=== PATIENT | male | born 1950 | race African-American/Black ===

== ENCOUNTER 2016-10-24 21:54 | Emergency (ER) | payer MEDICARE, OTHER ==
[~2016-10-24] VITALS: Ht 177.8 cm; Wt 72.0 kg
[~2016-10-24 21:54] MED LIST: DOXY100T PO
[2016-10-24 21:56] VITALS: BP 134/90; PULSE 76; RESP 16; TEMP 98.9; O2SAT 96
[2016-10-24] MEDS ORDERED: [UNRECOGNIZED DRUG - REMARK] (22:02)
--- NOTE | 2016-10-24 22:44 | PD ---
HPI Chief Complaint: Complaint Time Seen by Provider: 22:35 Travel History International Travel<30 days: No Contact w/Intl Traveler<30days: No Traveled to known affect area: No History of Present Illness HPI 66-year-old male with history of chronic hiccups presents for evaluation of hematuria and left flank pain. He reports that he has had intermittent dark red urine for the past few weeks, worsened today. He has also been experiencing some left flank pain and left-sided abdominal pain throughout the day today. He endorses some pain in his head as well. He denies any nausea or vomiting, chest pain or shortness of breath, testicular or scrotal pain, urethral discharge. Symptoms are moderate, no aggravating or alleviating factors. No history of kidney stones. No other complaints. PFSH Past Medical History Hx Anticoagulant Therapy: No Asthma: No Blood Disorders: No Heart Rhythm Problems: No Cancer: No Cardiovascular Problems: No High Cholesterol: No Chemotherapy: No Chest Pain: No Congestive Heart Failure: No COPD: No Cerebrovascular Accident: No Diabetes: No Endocrine: No Genitourinary: No Hypertension: No Immune Disorder: No Musculoskeletal: Yes Neurologic: No Psychiatric: No Reproductive: No Respiratory: Yes (ASTHMA) Myocardial Infarction: No Radiation Therapy: No Sleep Apnea: No Social History Alcohol Use: Yes (2 4 PKS BEER DAILY) Tobacco Use: No Substance Use: Yes (SMOKES MARIJUANA 2-3 X PER WEEK) Allergies-Medications (Allergen,Severity, Reaction): Coded Allergies: No Known Allergies (Verified , 10/24/16) Reported Meds & Prescriptions Reported Meds & Active Scripts Active Reported [[facility]] Unknown Dose Review of Systems Except as stated in HPI: all other systems reviewed are Neg Physical Exam Narrative GENERAL: This is a well-developed well-nourished male in no acute distress, hiccuping during examination. SKIN: Warm and dry. HEAD: Atraumatic. Normocephalic. EYES: Pupils equal and round. No scleral icterus. No injection or drainage. ENT: No nasal bleeding or discharge. Mucous membranes pink and moist. NECK: Trachea midline. No JVD. CARDIOVASCULAR: Regular rate and rhythm. No murmur appreciated. RESPIRATORY: No accessory muscle use. Clear to auscultation. Breath sounds equal bilaterally. GASTROINTESTINAL: Abdomen soft, mild left lower quadrant tenderness without guarding. MUSCULOSKELETAL: No obvious deformities. Slight left CVA tenderness is present. NEUROLOGICAL: Awake and alert. No obvious cranial nerve deficits. Motor grossly within normal limits. Normal speech. PSYCHIATRIC: Appropriate mood and affect; insight and judgment normal. Data Data Last Documented VS Vital Signs Date Time Temp Pulse Resp B/P Pulse Ox O2 Delivery O2 Flow Rate FiO2 10/24/16 21:56 98.9 76 16 134/90 96 Room Air Orders Complete Blood Count With Diff (10/24/16 22:41) Comprehensive Metabolic Panel (10/24/16 22:41) Urinalysis - C+S If Indicated (10/24/16 22:41) Ecg Monitoring (10/24/16 22:41) Iv Access Insert/Monitor (10/24/16 22:41) Ketorolac Inj (Toradol Inj) (10/24/16 22:45) Morphine Inj (Morphine Inj) (10/24/16 22:45) Ondansetron Inj (Zofran Inj) (10/24/16 22:45) Sodium Chloride 0.9% Flush (Ns Flush) (10/24/16 22:45) Creatine Kinase (Cpk) (10/24/16 22:41) Ct Abd/Pel W/O Iv Contrast (10/24/16 23:00) MDM Medical Decision Making Medical Screen Exam Complete: Yes Emergency Medical Condition: Yes Medical Record Reviewed: Yes Differential Diagnosis Renal stone, dehydration, rhabdomyolysis, nephritis Narrative Course 66-year-old male who has been experiencing some dark colored question of hematuria intermittently for the past few weeks. Today symptoms worsened and he has also been having left-sided flank pain and abdominal pain. Plans for basic lab work, urinalysis, CT abdomen and pelvis. He will be given IV fluids, Zofran, Toradol. At the end of my shift the patient was signed out to my attending pending CT and labwork studies. Juanito Munguia Oct 24, 2016 22:44
[2016-10-24] MEDS ORDERED: SODIUM CHLORIDE 0.9% FLUSH 10 ML FLUSH IVF PRN (22:45)
[2016-10-24] MEDS ORDERED: ONDANSETRON HCL 4 MG/2 ML VIAL IVP ONE (22:45)
[2016-10-24] MEDS ORDERED: MORPHINE SULFATE 4 MG/ML INJ IV ONE (22:45)
[2016-10-24] MEDS ORDERED: KETOROLAC TROMETHAMINE 30 MG/ML (IVP) VIAL IVP ONE (22:45)
[2016-10-24 23:09] VITALS: BP 127/81; PULSE 67; RESP 16; O2SAT 94
[2016-10-24 23:24] LABS: AUTOMATED NEUTROPHIL # 5.3 TH/MM3 (1.8-7.7); BASOPHIL % 0.3 % (0.0-2.0); EOSINOPHIL % 0.6 % (0.0-4.0); HEMATOCRIT 41.7 % (39.0-51.0); HEMO FLAGS DIFF FINAL; LYMPH % 24.5 % (9.0-44.0); MEAN CELL VOLUME 87.6 FL (80.0-100.0); MEAN CORPUSCULAR HEMOGLOBIN 29.7 PG (27.0-34.0); MEAN CORPUSCULAR HGB CONC 33.9 % (32.0-36.0); MONO % 9.2 % (0.0-8.0); NEUT % 65.4 % (16.0-70.0); PLATELET COUNT 263 TH/MM3 (150-450); RED BLOOD COUNT 4.76 MIL/MM3 (4.50-5.90); RED CELL DISTRIBUTION WIDTH 13.4 % (11.6-17.2); WHITE BLOOD COUNT 8.1 TH/MM3 (4.0-11.0)
[2016-10-24 23:43] LABS: ALT (GPT) 28 U/L (12-78); ANION GAP 7 MEQ/L (5-15); AST (GOT) 20 U/L (15-37); BICARBONATE 30.7 MEQ/L (21.0-32.0); BLOOD UREA NITROGEN 8 MG/DL (7-18); CHLORIDE 99 MEQ/L (98-107); GLOMERULAR FILTRATION RATE 91 ML/MIN (>89); POTASSIUM 3.7 MEQ/L (3.5-5.1); SODIUM (NA) 137 MEQ/L (136-145)
[2016-10-24 23:45] LABS: ALKALINE PHOSPHATASE 69 U/L (45-117); CREATINE KINASE 319 U/L (39-308); TOTAL BILIRUBIN ADULT 2.8 MG/DL (0.2-1.0)
[2016-10-25 00:02] LABS: CKMB 4.9 NG/ML (0.5-3.6)
--- NOTE | 2016-10-25 00:08 | RADRPT ---
EXAM DATE/TIME: 10/24/2016 23:50 [facility] COMPARISON: No previous studies available for comparison. INDICATIONS : Bilateral flank pain and hematuria. Evaluate for calculi. ORAL CONTRAST: No oral contrast ingested. RADIATION DOSE: 13.28 CTDIvol (mGy) MEDICAL HISTORY : Carcinoma, throat. SURGICAL HISTORY : None. ENCOUNTER: Initial ACUITY: 1 day PAIN SCALE: 8/10 LOCATION: Left flank TECHNIQUE: Volumetric scanning of the abdomen and pelvis was performed. Using automated exposure control and ad justment of the mA and/or kV according to patient size, radiation dose was kept as low as reasonably achievable to obtain optimal diagnostic quality images. FINDINGS: LOWER LUNGS: The visualized lower lungs are clear. LIVER: Homogeneous density without lesion. There is no dilation of the biliary tree. No calcified gallston es. SPLEEN: Normal size without lesion. PANCREAS: Within normal limits. KIDNEYS: Normal in size and shape. There is no mass, stone, or hydronephrosis. ADRENAL GLANDS: Within normal limits. VASCULAR: There is no aortic aneurysm. BOWEL/MESENTERY: The stomach, small bowel, and colon demonstrate no acute abnormality. There is no free intraperitone al air or fluid. ABDOMINAL WALL: Within normal limits. RETROPERITONEUM: There is no lymphadenopathy. BLADDER: No wall thickening or mass. REPRODUCTIVE: Enlarged prostate. INGUINAL: There is no lymphadenopathy or hernia. MUSCULOSKELETAL: Within normal limits for patient age. CONCLUSION: No acute abnormality. Enlarged prostate. Jin Lee MD on October 25, 2016 at 0:05 Board Certified Radiologist. This report was verified electronically.
[2016-10-25 01:29] LABS: BLOOD, URINE NEG (NEG); CALCIUM OXALATE CRYSTALS,URINE OCC /hpf; COMMENT (UR) CULT NOT INDICATED; CULTURE IF INDICATED CULT NOT INDICATED; GLUCOSE,URINE NEG (NEG); KETONE, URINE TRACE mg/dL (NEG); MUCUS URINE MANY /lpf (OCC); NITRITE,URINE NEG (NEG); PH, URINE 5.5 (5.0-8.5); SQUAMOUS EPITHELIAL CELL URINE <1 /hpf (0-5); URINE COLOR DARK-YELLOW (YELLW/STRAW)
[2016-10-25] MEDS ORDERED: IBUP-1129 PO (01:46)
--- NOTE | 2016-10-25 01:46 | PD ---
Physical Exam Date Seen by Provider: Oct 24, 2016 Time Seen by Provider: 23:00 Narrative I, Dr. Currie, have reviewed the advance practice practitioner's documentation and am in agreement, met with the patient face to face, made the diagnosis, and the medical decision making was done by me. *My assessment and Findings: Patient seen and evaluated with PA, please see PA note for further details. Laboratory Tests Test 10/24/16 10/25/16 23:09 01:15 Monocytes (%) (Auto) 9.2 % (0.0-8.0) Calcium Level 10.3 MG/DL (8.5-10.1) Total Bilirubin 2.8 MG/DL (0.2-1.0) Total Creatine Kinase 319 U/L (39-308) Creatine Kinase MB 4.9 NG/ML (0.5-3.6) Urine Color DARK-YELLOW (YELLW/STRAW) Urine Turbidity HAZY (CLEAR) Urine Protein 30 mg/dL (NEG-TRACE) Urine Ketones TRACE mg/dL (NEG) Urine Bilirubin SMALL (NEG) Urine Leukocyte Esterase TRACE (NEG) Urine Calcium Oxalate Crystals OCC /hpf (NONE) Urine Mucus MANY /lpf (OCC) Last 24 hours Impressions Abdomen/Pelvis CT 10/24/16 2300 Signed Impressions: Service Date/Time: Saturday, October 24, 2016 23:50 - CONCLUSION: No acute abnormality. Enlarged prostate. Jni Lee MD Lab work did not show significant UTI and CAT scan was otherwise unremarkable. Urine did not show any signs of significant bleeding. No sniffed and RBCs. CPK is not significantly more unremarkable. At this point, my plan would be to release the patient would follow-up to primary care physician. Return for new issues as needed. The palates discussed with the patient and he states understanding. Data Data Last Documented VS Vital Signs Date Time Temp Pulse Resp B/P Pulse Ox O2 Delivery O2 Flow Rate FiO2 10/24/16 23:09 67 16 127/81 94 Room Air 10/24/16 21:56 98.9 Orders Complete Blood Count With Diff (10/24/16 22:41) Comprehensive Metabolic Panel (10/24/16 22:41) Urinalysis - C+S If Indicated (10/24/16 22:41) Ecg Monitoring (10/24/16 22:41) Iv Access Insert/Monitor (10/24/16 22:41) Ketorolac Inj (Toradol Inj) (10/24/16 22:45) Morphine Inj (Morphine Inj) (10/24/16 22:45) Ondansetron Inj (Zofran Inj) (10/24/16 22:45) Sodium Chloride 0.9% Flush (Ns Flush) (10/24/16 22:45) Creatine Kinase (Cpk) (10/24/16 22:41) Ct Abd/Pel W/O Iv Contrast (10/24/16 23:00) CKMB (10/24/16 23:09) CKMB% (10/24/16 23:09) Labs Laboratory Tests Test 10/24/16 10/25/16 23:09 01:15 White Blood Count 8.1 TH/MM3 Red Blood Count 4.76 MIL/MM3 Hemoglobin 14.1 GM/DL Hematocrit 41.7 % Mean Corpuscular Volume 87.6 FL Mean Corpuscular Hemoglobin 29.7 PG Mean Corpuscular Hemoglobin 33.9 % Concent Red Cell Distribution Width 13.4 % Platelet Count 263 TH/MM3 Mean Platelet Volume 8.3 FL Neutrophils (%) (Auto) 65.4 % Lymphocytes (%) (Auto) 24.5 % Monocytes (%) (Auto) 9.2 % Eosinophils (%) (Auto) 0.6 % Basophils (%) (Auto) 0.3 % Neutrophils # (Auto) 5.3 TH/MM3 Lymphocytes # (Auto) 2.0 TH/MM3 Monocytes # (Auto) 0.7 TH/MM3 Eosinophils # (Auto) 0.0 TH/MM3 Basophils # (Auto) 0.0 TH/MM3 CBC Comment DIFF FINAL Differential Comment Sodium Level 137 MEQ/L Potassium Level 3.7 MEQ/L Chloride Level 99 MEQ/L Carbon Dioxide Level 30.7 MEQ/L Anion Gap 7 MEQ/L Blood Urea Nitrogen 8 MG/DL Creatinine 1.00 MG/DL Estimat Glomerular Filtration 91 ML/MIN Rate Random Glucose 103 MG/DL Calcium Level 10.3 MG/DL Total Bilirubin 2.8 MG/DL Aspartate Amino Transf 20 U/L (AST/SGOT) Alanine Aminotransferase 28 U/L (ALT/SGPT) Alkaline Phosphatase 69 U/L Total Creatine Kinase 319 U/L Creatine Kinase MB 4.9 NG/ML Creatine Kinase MB % 1.5 % Total Protein 8.0 GM/DL Albumin 4.0 GM/DL Urine Color DARK-YELLOW Urine Turbidity HAZY Urine pH 5.5 Urine Specific [place] 1.035 Urine Protein 30 mg/dL Urine Glucose (UA) NEG mg/dL Urine Ketones TRACE mg/dL Urine Occult Blood NEG Urine Nitrite NEG Urine Bilirubin SMALL Urine Urobilinogen 2.0 MG/DL Urine Leukocyte Esterase TRACE Urine RBC 2 /hpf Urine WBC 2 /hpf Urine Squamous Epithelial <1 /hpf Cells Urine Calcium Oxalate Crystals OCC /hpf Urine Mucus MANY /lpf Microscopic Urinalysis Comment CULT NOT INDICATED MDM Medical Record Reviewed: Yes Supervised Visit with ROULA: Yes Diagnosis Primary Impression: Left flank pain Patient Instructions: General Instructions Departure Forms: Tests/Procedures Med/Other Pt SpecificInfo: Prescription(s) given Scripts Ibuprofen (Motrin Ib)200 Mg [id number] Mg PO QID PRN (PAIN SCALE 1 TO 10) #20 Prov:Rae Currie MD 10/25/16 Disposition: 01 DISCHARGE HOME Condition: Stable (ERASED) Rae Currie MD Oct 25, 2016 01:46
== END 2016-10-25 02:00 | disposition home or self-care (01) ==
LOC: NEPE 21:54
DX: R10.9 Unspecified abdominal pain (principal); R31.9 Hematuria, unspecified; R51 Headache; J45.909 Unspecified asthma, uncomplicated
CPT/HCPCS: 74176; 80053; 81001; 82550; 82552; 85025; 96374; 96375; 99285; J1885; J2270; J2405